=== PATIENT | male | born 1955 | race Caucasian/White ===

== ENCOUNTER 2020-10-22 21:31 | Inpatient (IN) | payer OTHER ==
[~2020-10-22] VITALS: Ht 185.4 cm; Wt 109.0 kg
[2020-10-22 21:53] LABS: BASOPHILS ABSOLUTE AUTO 0.11 K/mm3 (0.00-0.23); BASOPHILS PERCENT AUTO 1 % (0-2); EOSINOPHILS ABSOLUTE AUTO 0.28 K/mm3 (0.00-0.68); EOSINOPHILS PERCENT AUTO 3 % (0-6); Hematocrit 46.4 % (37.0-53.0); Hemoglobin 16.2 g/dL (13.5-17.5); IMMATURE GRAN ABSOLUTE AUTO 0.07 K/mm3 (0.00-0.10); IMMATURE GRAN PERCENT AUTO 1 % (0-1); LYMPHOCYTES ABSOLUTE AUTO 2.43 K/mm3 (0.84-5.20); LYMPHOCYTES PERCENT AUTO 30 % (21-46); MONOCYTES ABSOLUTE AUTO 0.66 K/mm3 (0.16-1.47); MONOCYTES PERCENT AUTO 8 % (4-13); Mean Corpuscular HGB 35.3 pg (26.0-34.0); Mean Corpuscular HGB Conc 34.9 g/dL (31.5-36.5); Mean Corpuscular Volume 101 fL (80-100); Mean Platelet Volume 10.9 fL (9.1-12.4); NEUTROPHILS ABSOLUTE AUTO 4.58 K/mm3 (1.96-9.15); NEUTROPHILS PERCENT AUTO 56 % (41-73); NRBC ABSOLUTE 0.03 K/mm3 (0.00-0.02); NRBC Auto 0.4 /100 WBC (0.0-0.2); Platelet Count 294 K/mm3 (150-400); RDW Coefficient Variation 12.8 % (11.7-14.2); RDW Standard Deviation 47.2 fL (35.1-46.3); Red Blood Cell Count 4.59 M/mm3 (4.30-5.90); White Blood Cell Count 8.13 K/mm3 (4.00-11.30)
[2020-10-22 22:27] LABS: Alanine Aminotransfer (ALT/SGP 29 U/L (12-78); Albumin, Blood 2.9 g/dL (3.4-5.0); Albumin/Globulin Ratio 0.8 (0.8-1.8); Alk Phos 103 U/L (50-136); Anion Gap 9 mmol/L (6-16); Aspartate Aminotrans (AST/SGOT 42 U/L (12-37); Bilirubin, Total 0.5 mg/dL (0.1-1.0); Blood Urea Nitrogen 9 mg/dL (8-24); Bun/Creatinine Ratio 9.4 (12.0-20.0); CO2, Blood 24 mmol/L (21-32); Calcium, Blood 7.9 mg/dL (8.5-10.1); Chloride, Blood 103 mmol/L (98-108); Creatinine, Blood 0.96 mg/dL (0.60-1.20); Globulin, Blood 3.5 g/dL (2.2-4.0); Glomerular Filtration Rate >60 (60-); Glucose, Blood 116 mg/dL (70-99); Potassium, Blood 3.7 mmol/L (3.5-5.5); Sodium, Blood 136 mmol/L (136-145); Total Protein, Blood 6.4 g/dL (6.4-8.2); Troponin I <0.015 ng/mL (0.000-0.040)
[2020-10-23 00:44] LABS: Source, Urine Clean Catch
[2020-10-23 00:51] LABS: Bilirubin, Urine Neg (Neg); Blood, Urine Neg (Neg); Glucose Qualitative, Urine Neg (Neg); Ketones, Urine Neg (Neg); Leukocyte Esterase, Urine 1+ (Neg); Nitrite, Urine Neg (Neg); Protein, Urine 2+ (Neg); Urobilinogen, Urine 1+ (Normal)
[2020-10-23 00:56] LABS: Appearance, Urine Clear (Clear); Color, Urine Amber (P-Yellow)
[2020-10-23 00:59] LABS: Bacteria Mod /hpf; Mucus Mod (0-Heavy); Red Blood Cells, Urine 0-2 /hpf (0-2); Squamous Epithelial Cells Few /hpf (Few)
[2020-10-23 06:02] LABS: BASOPHILS ABSOLUTE AUTO 0.09 K/mm3 (0.00-0.23); BASOPHILS PERCENT AUTO 1 % (0-2); EOSINOPHILS ABSOLUTE AUTO 0.11 K/mm3 (0.00-0.68); EOSINOPHILS PERCENT AUTO 1 % (0-6); Hematocrit 46.1 % (37.0-53.0); Hemoglobin 16.3 g/dL (13.5-17.5); IMMATURE GRAN ABSOLUTE AUTO 0.05 K/mm3 (0.00-0.10); IMMATURE GRAN PERCENT AUTO 1 % (0-1); LYMPHOCYTES ABSOLUTE AUTO 2.17 K/mm3 (0.84-5.20); LYMPHOCYTES PERCENT AUTO 21 % (21-46); MONOCYTES ABSOLUTE AUTO 0.81 K/mm3 (0.16-1.47); MONOCYTES PERCENT AUTO 8 % (4-13); Mean Corpuscular HGB 35.8 pg (26.0-34.0); Mean Corpuscular HGB Conc 35.4 g/dL (31.5-36.5); Mean Corpuscular Volume 101 fL (80-100); Mean Platelet Volume 10.1 fL (9.1-12.4); NEUTROPHILS PERCENT AUTO 69 % (41-73); Platelet Count 210 K/mm3 (150-400); RDW Coefficient Variation 12.5 % (11.7-14.2); Red Blood Cell Count 4.55 M/mm3 (4.30-5.90); White Blood Cell Count 10.53 K/mm3 (4.00-11.30)
--- NOTE | 2020-10-23 06:36 | NUR ---
SHIFT SUMMARY PT IS ALERT AND ORIENTED. PT REPORTED CHEST PAIN/PRESSURE, NAUSEA, HEART BURN AT APPROX 0530 AND HAS BEEN MEDICATED PER EMAR. PT'S VITALS HAVE VERIED AND ARE RECORDED IN CHART. TELE HAS BEEN MONITORING R/R. PT IS NO 1/10 CHEST PAIN WITH RESOLVED NAUSEA AND HEART BURN. RATE IS 60'S IN A FLUTTER. PT USING CALL LIGHT APPROPRIETLY AND WE WILL CONTINUE TO MONITOR.
[2020-10-23 06:57] LABS: Alanine Aminotransfer (ALT/SGP 44 U/L (12-78); Albumin, Blood 3.2 g/dL (3.4-5.0); Albumin/Globulin Ratio 0.9 (0.8-1.8); Alk Phos 113 U/L (50-136); Anion Gap 7 mmol/L (6-16); Aspartate Aminotrans (AST/SGOT 82 U/L (12-37); Bilirubin, Total 1.3 mg/dL (0.1-1.0); Blood Urea Nitrogen 10 mg/dL (8-24); Bun/Creatinine Ratio 11.1 (12.0-20.0); CO2, Blood 24 mmol/L (21-32); Calcium, Blood 8.3 mg/dL (8.5-10.1); Chloride, Blood 103 mmol/L (98-108); Globulin, Blood 3.7 g/dL (2.2-4.0); Glomerular Filtration Rate >60 (60-); Glucose, Blood 115 mg/dL (70-99); Potassium, Blood 5.3 mmol/L (3.5-5.5); Sodium, Blood 134 mmol/L (136-145); Total Protein, Blood 6.9 g/dL (6.4-8.2)
[2020-10-23 07:04] LABS: Creatine Kinase MB 62.1 ng/mL (0.0-3.6); Creatine Kinase MB Index 5.8 (0.0-4.0)
[2020-10-23 09:08] LABS: SARS-Cov-2 (COVID-19) PCR, MMC NEGATIVE (NEGATIVE)
[2020-10-23 15:54] LABS: CHOL/HDL RATIO 2.1; Cholesterol 93 mg/dL (50-200); HDL Cholesterol 45 mg/dL (>39); LDL/HDL RATIO 0.7; Low Density Lipoprotein Chol 30 mg/dL (0-110); Triglycerides 92 mg/dL (30-160); Very Low Density Lipoprot Chol 18 mg/dL (6-32)
--- NOTE | 2020-10-23 18:46 | NUR ---
SHIFT SUMMARY PATIENT IS ALERT AND ORIENTED, COOPERATIVE WITH CARE AND ABLE TO CALL APPROPRIATELY. PATIENT COMPLAINED OF CHEST PAIN THIS MORNING, DR. CABRERA NOTIFIED AND ORDERS FOR PROTONIX AND TUMS GIVEN. PATIENT ENDORSED NAUSEA, GIVEN ZOFRAN PER EMAR. PATIENT ENDORSED FEELING RELIEF OF CHEST PAIN AFTER PROTONIX/TUMS ADMINISTERED. VSS PRIOR TO PATIENT GOING TO ANGIOGRAM. PATIENT CAME BACK FROM ANGIO, TR BAND IN PLACE WITH NO HEMATOMA/DISCHARGE NOTED. PATIENT NOTED TO BE SLIGHTLY HYPOTENSIVE UPON RETURN TO UNIT, MONITORED AND IMPROVED TO PRE-ANGIO LEVEL. PATIENT DENIED CHEST PAIN SINCE ARRIVAL BACK TO UNIT FROM [facility]ART [facility].
[2020-10-24 04:38] LABS: BASOPHILS ABSOLUTE AUTO 0.05 K/mm3 (0.00-0.23); BASOPHILS PERCENT AUTO 1 % (0-2); EOSINOPHILS PERCENT AUTO 2 % (0-6); Hematocrit 41.1 % (37.0-53.0); Hemoglobin 14.2 g/dL (13.5-17.5); IMMATURE GRAN ABSOLUTE AUTO 0.03 K/mm3 (0.00-0.10); IMMATURE GRAN PERCENT AUTO 1 % (0-1); LYMPHOCYTES ABSOLUTE AUTO 1.73 K/mm3 (0.84-5.20); LYMPHOCYTES PERCENT AUTO 28 % (21-46); MONOCYTES ABSOLUTE AUTO 0.45 K/mm3 (0.16-1.47); MONOCYTES PERCENT AUTO 7 % (4-13); Mean Corpuscular HGB 35.9 pg (26.0-34.0); Mean Corpuscular HGB Conc 34.5 g/dL (31.5-36.5); Mean Corpuscular Volume 104 fL (80-100); Mean Platelet Volume 10.4 fL (9.1-12.4); NEUTROPHILS ABSOLUTE AUTO 3.75 K/mm3 (1.96-9.15); NEUTROPHILS PERCENT AUTO 61 % (41-73); Platelet Count 169 K/mm3 (150-400); RDW Coefficient Variation 12.8 % (11.7-14.2); Red Blood Cell Count 3.96 M/mm3 (4.30-5.90); White Blood Cell Count 6.11 K/mm3 (4.00-11.30)
[2020-10-24 04:55] LABS: Anion Gap 5 mmol/L (6-16); Blood Urea Nitrogen 14 mg/dL (8-24); Bun/Creatinine Ratio 15.9 (12.0-20.0); CO2, Blood 26 mmol/L (21-32); Calcium, Blood 8.5 mg/dL (8.5-10.1); Chloride, Blood 103 mmol/L (98-108); Creatinine, Blood 0.88 mg/dL (0.60-1.20); Glomerular Filtration Rate >60 (60-); Glucose, Blood 91 mg/dL (70-99); Magnesium, Blood 1.8 mg/dL (1.6-2.4); Potassium, Blood 4.2 mmol/L (3.5-5.5); Sodium, Blood 134 mmol/L (136-145)
--- NOTE | 2020-10-24 05:09 | NUR ---
SHIFT SUMMARY REPORT RECIEVED FROM PAMELA AND PATIENT FOUND TO BE A&OX4, HAMEED, AND FOLLOWING COMMANDS. NO CHEST PAIN OR PRESSURE NOTED. SR/SB ON THE MONITOR IN THE 50'S-60'S. VSS. ON RA. RIGHT RADIAL CATH SITE WITH SCANT SEROSANG DRAINAGE UNDER DRESSING. NO SIGNS OF BLEEDING OR HEMATOMA. ARM BOARD IN PLACE. EATING AND VOIDING WITHOUT ISSUE. UP AD ANGELICA IN ROOM. NO CONCERNS AT THIS TIME. WILL CONTINUE TO MONITOR UNTIL REPORT GIVEN TO PAMELA RN.
[2020-10-24] MEDS ORDERED: TUMS500 MG PO (13:28)
[2020-10-24] MEDS ORDERED: LOSA25 PO (13:29)
[2020-10-24] MEDS ORDERED: Isosorbide Mono30 MG PO (13:30)
[2020-10-24] MEDS ORDERED: METO50ER PO (13:32)
[2020-10-24] MEDS ORDERED: NITR.4SL SL (13:33)
[2020-10-24] MEDS ORDERED: PANT20 PO (13:34)
[2020-10-24] MEDS ORDERED: XARELTO20 MG PO (13:35)
[2020-10-24] MEDS ORDERED: TORSE20 PO (13:36)
--- NOTE | 2020-10-24 14:55 | NUR ---
DISCHARGE SUMMARY BHAKTI LEFT BY WC WITH STEP DAUGHTER. MEDS THROROUGHLY REVIEWED WITH BOTH OF THEM. MEDS FAXED TO [facility], PT DOESN'T HAVE OTHER INSURANCE FOR THEM TO BE FILLED AT [facility]. PIVS REMOVED. VSS. PAPERWORK GONE OVER WITH PT. PT WILL MAKE F/U APPT TODAY FOR [facility]. ANGIO SITE CARE EDUCATION DONE, PAPERWORK SIGNED.
== END 2020-10-24 14:50 | disposition home health service (06) | DRG 286 ==
LOC: ER 21:31 → PCU 21:32
PROVIDERS: Emergency Medicine; Internal Medicine Cardiovascular Disease; Student in an Organized Health Care Education/Training Program; ADMIT Internal Medicine
PROC: 4A023N7 Measurement of Cardiac Sampling and Pressure, Left Heart, Percutaneous Approach (ICD-10-PCS; principal; 2020-10-23)
PROC: B2111ZZ Fluoroscopy of Multiple Coronary Arteries using Low Osmolar Contrast (ICD-10-PCS; 2020-10-23)
DX: I48.0 Paroxysmal atrial fibrillation (principal); I50.21 Acute systolic (congestive) heart failure; M62.82 Rhabdomyolysis; I47.2 Ventricular tachycardia; I48.92 Unspecified atrial flutter; I42.6 Alcoholic cardiomyopathy; J44.9 Chronic obstructive pulmonary disease, unspecified; Z79.899 Other long term (current) drug therapy; Z88.8 Allergy status to other drugs, medicaments and biological substances; F17.210 Nicotine dependence, cigarettes, uncomplicated; E66.01 Morbid (severe) obesity due to excess calories; Z68.33 Body mass index [BMI] 33.0-33.9, adult; E87.5 Hyperkalemia; F10.10 Alcohol abuse, uncomplicated
CPT/HCPCS: 36415; 71045; 71260; 80048; 80053; 80061; 81001; 82550; 82553; 83036; 83735; 83880; 84484; 85025; 85379; 85730; 86850; 86900; 86901; 87086; 93005; 93010; 93458; 94762; 96365; 96375; 96376; 99152; 99285-25; A9270; C1769; C1894; C8929; C9113; G0378; J0282; J1644; J2250; J2405; J3010; J3480; J7030; J7040; J7050; J7060; Q9957; Q9967; U0004

== ENCOUNTER 2022-01-26 20:19 | Emergency (ER) | payer OTHER ==
[~2022-01-26] VITALS: Ht 185.4 cm; Wt 108.9 kg
[~2022-01-26 20:19] MED LIST: Isosorbide Mono30 MG PO; LOSA25 PO; METO50ER PO; NITR.4SL SL; PANT20 PO; TORSE20 PO; TUMS500 MG PO; XARELTO20 MG PO
[2022-01-26 20:45] LABS: BASOPHILS ABSOLUTE AUTO 0.12 K/mm3 (0.00-0.23); BASOPHILS PERCENT AUTO 1 % (0-2); EOSINOPHILS ABSOLUTE AUTO 0.22 K/mm3 (0.00-0.68); EOSINOPHILS PERCENT AUTO 2 % (0-6); Hematocrit 50.2 % (37.0-53.0); Hemoglobin 16.7 g/dL (13.5-17.5); IMMATURE GRAN ABSOLUTE AUTO 0.08 K/mm3 (0.00-0.10); IMMATURE GRAN PERCENT AUTO 1 % (0-1); LYMPHOCYTES ABSOLUTE AUTO 2.14 K/mm3 (0.84-5.20); LYMPHOCYTES PERCENT AUTO 19 % (21-46); MONOCYTES ABSOLUTE AUTO 1.11 K/mm3 (0.16-1.47); MONOCYTES PERCENT AUTO 10 % (4-13); Mean Corpuscular HGB 32.9 pg (26.0-34.0); Mean Corpuscular HGB Conc 33.3 g/dL (31.5-36.5); Mean Corpuscular Volume 99 fL (80-100); Mean Platelet Volume 9.6 fL (9.1-12.4); NEUTROPHILS ABSOLUTE AUTO 7.72 K/mm3 (1.96-9.15); NEUTROPHILS PERCENT AUTO 68 % (41-73); Platelet Count 344 K/mm3 (150-400); RDW Coefficient Variation 12.9 % (11.7-14.2); RDW Standard Deviation 46.8 fL (35.1-46.3); Red Blood Cell Count 5.07 M/mm3 (4.30-5.90); White Blood Cell Count 11.39 K/mm3 (4.00-11.30)
[2022-01-26 21:04] LABS: Albumin, Blood 3.5 g/dL (3.4-5.0); Albumin/Globulin Ratio 0.9 (0.8-1.8); Bun/Creatinine Ratio 20.6 (12.0-20.0); Calcium, Blood 8.7 mg/dL (8.5-10.1); Creatinine, Blood 0.88 mg/dL (0.60-1.20); Globulin, Blood 3.8 g/dL (2.2-4.0); Potassium, Blood 3.7 mmol/L (3.5-5.5); Total Protein, Blood 7.3 g/dL (6.4-8.2)
[2022-01-26 21:26] LABS: Magnesium, Blood 1.9 mg/dL (1.6-2.4)
== END 2022-01-26 23:17 | disposition home or self-care (01) ==
LOC: ER 20:19
PROVIDERS: Student in an Organized Health Care Education/Training Program
DX: I48.92 Unspecified atrial flutter (principal); I50.20 Unspecified systolic (congestive) heart failure; J44.9 Chronic obstructive pulmonary disease, unspecified; F17.210 Nicotine dependence, cigarettes, uncomplicated; Z79.899 Other long term (current) drug therapy; Z79.01 Long term (current) use of anticoagulants; Z88.8 Allergy status to other drugs, medicaments and biological substances
CPT/HCPCS: 36415; 80053; 83735; 84484; 85025; J7030